=== PATIENT | male | born 1975 | race Caucasian/White ===

== ENCOUNTER 2021-05-24 16:04 | Emergency (ER) | payer OTHER ==
[~2021-05-24] VITALS: Ht 182.9 cm; Wt 108.9 kg
== END 2021-05-24 21:43 | disposition home or self-care (01) ==
LOC: ER 16:04
DX: K52.89 Other specified noninfective gastroenteritis and colitis (principal)

== ENCOUNTER 2021-05-25 16:59 | Inpatient (IN) | payer OTHER ==
[~2021-05-25] VITALS: Ht 182.9 cm; Wt 108.9 kg
[2021-05-26] MEDS ORDERED: CIPRO500 MG PO (18:27)
== END 2021-05-26 18:50 | disposition home or self-care (01) | DRG 813 ==
LOC: MEDI 16:59
PROVIDERS: ADMIT Internal Medicine Hematology & Oncology; ATTEND Internal Medicine Hematology & Oncology
DX: D69.49 Other primary thrombocytopenia (principal); Z20.822 Contact with and (suspected) exposure to COVID-19

== ENCOUNTER 2021-09-20 07:34 | Outpatient (CLI) | payer OTHER ==
[~2021-09-20 07:34] MED LIST: CIPRO500 MG PO
== END 2021-09-20 07:40 | disposition home or self-care (01) ==
LOC: MRI 07:34
PROVIDERS: ATTEND Family Medicine
DX: M25.512 Pain in left shoulder (principal)
CPT/HCPCS: 73218